=== PATIENT | female | born 1980 | race African-American/Black ===

== ENCOUNTER 2017-08-03 22:15 | Emergency (ER) | payer MEDICAID ==
[2017-08-03] MEDS ORDERED: FENTANYL CITR 100 MCG/2 ML ONE (23:00)
[2017-08-03] MEDS ORDERED: ASPIRIN 81 MG CHEWABLE TABLET ONE (23:00)
[2017-08-03] MEDS ORDERED: NITROGLYCERIN 0.4 MG/TAB SL ONE (23:11)
[2017-08-03 23:38] LABS: Absolute Lymphocytes (CBC) 2.9 K/uL (0.7-4.9); Absolute Monocytes 0.5 K/uL (0.1-1.3); Absolute Neutrophil 3.4 K/uL (1.8-8.0); Basophils % 0.4 % (0-1.3); Eosinophils % 2.8 % (0-4.4); Hematocrit 35.1 % (36.0-45.0); Lymphocytes % 41.1 % (15.3-44.8); MCH 31.1 pg (27.0-35.0); MCV 91.2 fL (80-100); Monocytes % 7.2 % (3.3-12.3); RBC Red Blood Cell Count 3.85 M/uL (3.86-4.86)
[2017-08-03 23:39] LABS: Protime INR 1.13
[2017-08-03 23:49] LABS: Bicarbonate 24 mEq/L (21-31); Glucose Level 86 mg/dL (65-120); Potassium 3.1 mEq/L (3.6-5.0); Sodium Level 136 mEq/L (135-145)
[2017-08-03 23:55] LABS: ALT/SGPT 13 IU/L (10-60); AST/SGOT 16 IU/L (10-42); Albumin 3.8 g/dL (3.2-5.5); Alkaline Phosphatase 69 IU/L (42-121); BUN Blood Urea Nitrogen 9 mg/dL (6-20); Bilirubin Direct 0.1 mg/dL (0-0.2); Bilirubin Total 0.7 mg/dL (0.3-1.2); Magnesium 1.9 mg/dL (1.8-2.5); Protein, Total 7.4 g/dL (6.0-8.3)
[2017-08-04] MEDS ORDERED: POTASSIUM CL SA 10 MEQ TAB PO ONE (00:08)
--- NOTE | 2017-08-04 00:51 | EDPHYS ---
Physician Documentation [facility] Name: Lala Lares Age: 36 yrs Sex: Female : 1980 Arrival Date: 08/03/2017 Time: 22:16 Bed 17 Private MD: out of town, doctor ED Physician Ramin Joseph HPI: 08/03 23:11 This 36 yrs old Black Female presents to ER via EMS with complaints of Chest Pain. jr8 23:11 The patient or guardian reports chest pain that is located primarily in the anterior jr8 chest wall, left. The pain does not radiate. Associated signs and symptoms: Pertinent positives: dizziness, nausea. The chest pain is described as a pressure, sharp. Duration: The patient or guardian reports a single episode, that lasted 1 hour(s). Severity of pain: At its worst the pain was moderate in the emergency department the pain has improved mildly. EMS care prior to arrival includes: nitroglycerin, x 1, with partial relief of the chest pain. The patient has not experienced similar symptoms in the past. The patient has not recently seen a physician. Patient stated that she has had chest pain in past before. Stated that this has lasted longer and was different. Normally describes pain as reflux sensation. Today was pressure feeling and sharp to mid sternal region . 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 - Social history:: Smoking status: Patient uses tobacco products, denies chronic smoking, but will smoke occasionally. - Ebola Screening: : Patient negative for fever greater than or equal to 101.5 degrees Fahrenheit, and additional compatible Ebola Virus Disease symptoms. ROS: 23:11 Eyes: Negative for injury, pain, redness, and discharge, ENT: Negative for injury, jr8 pain, and discharge, Neck: Negative for injury, pain, and swelling, Respiratory: Negative for shortness of breath, cough, wheezing, and pleuritic chest pain, Abdomen/GI: Negative for abdominal pain, nausea, vomiting, diarrhea, and constipation, Back: Negative for injury and pain, MS/Extremity: Negative for injury and deformity, Skin: Negative for injury, rash, and discoloration, Neuro: Negative for headache, weakness, numbness, tingling, and seizure. 23:11 Cardiovascular: Positive for chest pain, Negative for edema, orthopnea, palpitations, paroxysmal nocturnal dyspnea. Exam: 23:11 Head/Face: Normocephalic, atraumatic. Eyes: Pupils equal round and reactive to light, jr8 extra-ocular motions intact. Lids and lashes normal. Conjunctiva and sclera are non-icteric and not injected. Cornea within normal limits. Periorbital areas with no swelling, redness, or edema. ENT: Nares patent. No nasal discharge, no septal abnormalities noted. Tympanic membranes are normal and external auditory canals are clear. Oropharynx with no redness, swelling, or masses, exudates, or evidence of obstruction, uvula midline. Mucous membranes moist. Neck: Trachea midline, no thyromegaly or masses palpated, and no cervical lymphadenopathy. Supple, full range of motion without nuchal rigidity, or vertebral point tenderness. No Meningismus. Cardiovascular: Regular rate and rhythm with a normal S1 and S2. No gallops, murmurs, or rubs. Normal PMI, no JVD. No pulse deficits. Respiratory: Lungs have equal breath sounds bilaterally, clear to auscultation and percussion. No rales, rhonchi or wheezes noted. No increased work of breathing, no retractions or nasal flaring. Abdomen/GI: Soft, non-tender, with normal bowel sounds. No distension or tympany. No guarding or rebound. No evidence of tenderness throughout. Back: No spinal tenderness. No costovertebral tenderness. Full range of motion. Skin: Warm, dry with normal turgor. Normal color with no rashes, no lesions, and no evidence of cellulitis. MS/ Extremity: Pulses equal, no cyanosis. Neurovascular intact. Full, normal range of motion. Neuro: Awake and alert, GCS 15, oriented to person, place, time, and situation. Cranial nerves II-XII grossly intact. Motor strength 5/5 in all extremities. Sensory grossly intact. Cerebellar exam normal. Normal gait. 23:11 Chest/axilla: Inspection: normal, Palpation: tenderness, that is mild, of the anterior aspect of left upper chest, that partially reproduces the patient's complaints. Vital Signs: 22:22 BP 176 / 118; Pulse 71; Resp 18 S; Temp 98.1(O); Pulse Ox 100% on R/A; Weight 95.71 kg jd3 (R); Height 5 ft. 5 in. (165.10 cm) (R); Pain 7/10; 23:27 BP 166 / 103; Pulse 63; Resp 17 S; Pulse Ox 100% on R/A; Pain 5/10; jd3 08/04 00:47 BP 171 / 108; Pulse 60; Resp 15 S; Pulse Ox 97% on R/A; Pain 0/10; jd3 08/03 22:22 Body Mass Index 35.11 (95.71 kg, 165.10 cm) [facility] MDM: 08/03 22:31 Patient medically screened. jr8 08/04 00:48 Differential diagnosis: acute myocardial infarction, acute pericarditis, anxiety, chest jr8 wall pain, cholecystitis, Cholelithiasis costochondritis, esophagitis, gastritis, gastroesophageal reflux disease (GERD), pleurisy, pneumonia, pulmonary embolus, stable angina, thoracic aortic disection, unstable angina. HEART Score: History: Moderately Suspicious (1), ECG: Normal (0), Age: < or = 45 years (0), Risk Factors: 1 or 2 risk factors (1), [Hypertension] Troponin: < or = 1 x Normal Limit (0). Data reviewed: vital signs, nurses notes, lab test result(s), EKG, radiologic studies, plain films, and as a result, I will discharge patient. Data interpreted: Pulse oximetry: on room air is 97 %. Interpretation: normal. 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 00:50 Response to treatment: the patient's symptoms have markedly improved after treatment. 08/03 22:42 Order name: Basic Metabolic Panel; Complete Time: 00:00 08/03 22:42 Order name: BNP; Complete Time: 00:00 08/03 22:42 Order name: CBC with Diff; Complete Time: 00:00 08/03 22:42 Order name: LFT's; Complete Time: 00:00 08/03 22:42 Order name: Magnesium; Complete Time: 00:00 08/03 22:42 Order name: PT-INR; Complete Time: 00:00 08/03 22:42 Order name: Troponin (emerg Dept Use Only); Complete Time: 00:00 08/03 22:42 Order name: XRAY Chest (1 view) 08/03 22:42 Order name: EKG; Complete Time: 22:43 08/04 00:19 Order name: Troponin (emerg Dept Use Only); Complete Time: 00:48 [facility] 08/03 22:42 Order name: Cardiac monitoring; Complete Time: 22:45 08/03 22:42 Order name: EKG - Nurse/Tech; Complete Time: 22:45 08/03 22:42 Order name: IV Saline Lock; Complete Time: 22:46 08/03 22:42 Order name: Labs collected and sent; Complete Time: 23:20 08/03 22:42 Order name: O2 Per Protocol; Complete Time: 22:46 08/03 22:42 Order name: O2 Sat Monitoring; Complete Time: 22:46 08/03 22:42 Order name: Urine Dipstick-Ancillary (obtain specimen); Complete Time: 22:46 Administered Medications: 08/03 23:19 Drug: fentaNYL (PF) 50 mcg Route: IVP; Site: right wrist; 08/04 00:09 Follow up: Response: No adverse reaction; Pain is decreased 08/03 23:20 Drug: Aspirin Chewable Tablet 324 mg Route: PO; 08/04 00:09 Follow up: Response: No adverse reaction 08/03 23:20 Drug: Nitroglycerin 0.4 mg Route: Sublingual; 08/04 00:09 Follow up: Response: No adverse reaction jd3 00:09 Drug: Potassium Chloride 40 mEq Route: PO; jd3 01:00 Follow up: Response: No adverse reaction jd3 Disposition: 01:58 Co-signature as Attending Physician, Ramin Joseph MD. rn Disposition: 08/04/17 00:50 Discharged to Home. Impression: Chest pain, unspecified. - Condition is Stable. - Discharge Instructions: Nonspecific Chest Pain, Chest Wall Pain, Aspirin and Your Heart. - Medication Reconciliation Form, Thank You Letter, Antibiotic Education, Prescription Opioid Use form. - Follow up: Soy Mercer MD; When: 48 Hours; Reason: Recheck today's complaints, Continuance of care, Re-evaluation by your physician. - Problem is new. - Symptoms have improved. Signatures: Dispatcher [employer] EDMS Ramin Joseph MD MD rn Roszak, Josh, PA PA jr8 Afshin Laguerre RN RN jd3 Corrections: (The following items were deleted from the chart) 01:00 00:50 08/04/2017 00:50 Discharged to Home. Impression: Chest pain, unspecified. jd3 Condition is Stable. Forms are Medication Reconciliation Form, Thank You Letter, Antibiotic Education, Prescription Opioid Use. Follow up: Soy Mercer; When: 48 Hours; Reason: Recheck today's complaints, Continuance of care, Re-evaluation by your physician. Problem is new. Symptoms have improved. jr8
--- NOTE | 2017-08-04 00:51 | ER ---
Nurse's Notes [facility] Name: Lala Lares Age: 36 yrs Sex: Female : 1980 Arrival Date: 08/03/2017 Time: 22:16 Bed 17 Private MD: out of town, doctor Diagnosis: Chest pain, unspecified Presentation: 08/03 22:17 Presenting complaint: EMS states: "pt has been having chest pain all day as well as jd3 feeling weak. she also has been having a headache with elevated blood pressure.". Transition of care: patient was not received from another setting of care. Onset of symptoms was August 03, 2017. Risk Assessment: Do you want to hurt yourself or someone else? Patient reports no desire to harm self or others. Initial Sepsis Screen: Does the patient meet any 2 criteria? No. Patient's initial sepsis screen is negative. Does the patient have a suspected source of infection? No. Patient's initial sepsis screen is negative. Care prior to arrival: Medication(s) given: nitro IV initiated. 22 GA, in the left antecubital area, Glucose check: 83. 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 - Social history:: Smoking status: Patient uses tobacco products, denies chronic smoking, but will smoke occasionally. - Ebola Screening: : Patient negative for fever greater than or equal to 101.5 degrees Fahrenheit, and additional compatible Ebola Virus Disease symptoms. Screenin:26 Abuse screen: Denies threats or abuse. Nutritional screening: No deficits noted. jd3 Tuberculosis screening: No symptoms or risk factors identified. Fall Risk Fall in past 12 months (25 points). IV access (20 points). Ambulatory Aid- None/Bed Rest/Nurse Assist (0 pts). Gait- Normal/Bed Rest/Wheelchair (0 pts) Mental Status- Oriented to own ability (0 pts). Total Quezada Fall Scale indicates High Risk Score (45 or more points). Fall prevention measures have been instituted. Side Rails Up X 2 Placed Close to Nursing Station Frequent Obs/Assessments Occuring. Assessment: 22:24 General: Appears uncomfortable, Behavior is calm, cooperative, appropriate for age. jd3 Pain: Complains of pain in chest Pain does not radiate. Pain currently is 7 out of 10 on a pain scale. Quality of pain is described as pressure, sharp, Pain began suddenly, Is continuous. Neuro: Level of Consciousness is awake, alert, obeys commands, Oriented to person, place, time, situation. Cardiovascular: Heart tones S1 S2 present Capillary refill < 3 seconds Patient's skin is warm and dry. Rhythm is regular. Respiratory: Airway is patent Respiratory effort is even, unlabored, Respiratory pattern is regular, symmetrical, Breath sounds are clear bilaterally. GI: Abdomen is round Bowel sounds present X 4 quads. Abd is soft and non tender X 4 quads. Patient currently denies nausea, vomiting. : No signs and/or symptoms were reported regarding the genitourinary system. EENT: No signs and/or symptoms were reported regarding the EENT system. Derm: Skin is intact, Skin is dry, Skin is normal, Skin temperature is warm. Musculoskeletal: Circulation, motion, and sensation intact. Range of motion: intact in all extremities. 23:26 Reassessment: Patient appears in no apparent distress at this time. Patient and/or jd3 family updated on plan of care and expected duration. Pain level reassessed. Patient is alert, oriented x 3, equal unlabored respirations, skin warm/dry/pink. 08/04 00:48 Reassessment: Patient appears in no apparent distress at this time. Patient and/or jd3 family updated on plan of care and expected duration. Pain level reassessed. Patient is alert, oriented x 3, equal unlabored respirations, skin warm/dry/pink. pt resting in bed, eyes closed, even and unlabored respirations, no distress noted at this time, call bethea in reach, waiting for results. 00:59 Reassessment: Patient appears in no apparent distress at this time. Patient and/or jd3 family updated on plan of care and expected duration. Pain level reassessed. Patient is alert, oriented x 3, equal unlabored respirations, skin warm/dry/pink. pt reported understanding of discharge instructions, even and steady gait upon discharge. Patient states feeling better. Vital Signs: 08/03 22:22 BP 176 / 118; Pulse 71; Resp 18 S; Temp 98.1(O); Pulse Ox 100% on R/A; Weight 95.71 kg jd3 (R); Height 5 ft. 5 in. (165.10 cm) (R); Pain 7/10; 23:27 BP 166 / 103; Pulse 63; Resp 17 S; Pulse Ox 100% on R/A; Pain 5/10; jd3 08/04 00:47 BP 171 / 108; Pulse 60; Resp 15 S; Pulse Ox 97% on R/A; Pain 0/10; jd3 08/03 22:22 Body Mass Index 35.11 (95.71 kg, 165.10 cm) [facility] ED Course: 08/03 22:16 Patient arrived in ED. ds1 22:16 Afshin Laguerre, RN is Primary Nurse. jd3 22:20 Triage completed. jd3 22:24 Arm band placed on. jd3 22:27 Patient has correct armband on for positive identification. Bed in low position. Call jd3 light in reach. Side rails up X2. laboratory monitor on. Pulse ox on. NIBP on. 22:27 Patient maintains SpO2 saturation greater than 95% on room air. jd3 22:31 Jose A Comer PA is PHCP. jr8 22:31 Ramin Joseph MD is Attending Physician. jr8 22:52 XRAY Chest (1 view) In Process Unspecified. EDMS 22:52 X-ray completed. Portable x-ray completed in exam room. Patient tolerated procedure kc2 well. 08/04 00:09 None, None is Private Physician. ds1 00:13 out of town, doctor is Private Physician. ds1 00:49 Soy Mercer MD is Referral Physician. jr8 00:57 No provider procedures requiring assistance completed. IV discontinued, intact, jd3 bleeding controlled, No redness/swelling at site. Pressure dressing applied. Administered Medications: 08/03 23:19 Drug: fentaNYL (PF) 50 mcg Route: IVP; Site: right wrist; jd3 08/04 00:09 Follow up: Response: No adverse reaction; Pain is decreased jd3 08/03 23:20 Drug: Aspirin Chewable Tablet 324 mg Route: PO; jd3 08/04 00:09 Follow up: Response: No adverse reaction jd3 08/03 23:20 Drug: Nitroglycerin 0.4 mg Route: Sublingual; jd3 08/04 00:09 Follow up: Response: No adverse reaction jd3 00:09 Drug: Potassium Chloride 40 mEq Route: PO; jd3 01:00 Follow up: Response: No adverse reaction jd3 Outcome: 00:50 Discharge ordered by MD. gonzalez 00:57 Discharged to home ambulatory, to lobby to wait for ride. jd3 00:57 Condition: stable 00:57 Discharge instructions given to patient, Instructed on discharge instructions, follow up and referral plans. Demonstrated understanding of instructions, follow-up care. 01:00 Patient left the ED. jd3 Signatures: Dispatcher [employer] EDNY Sunitha Watters1 Jose A Comer PA PA 8 Francia Robertson2 Afshin Laguerre, RN RN jd3
[2017-08-04 01:04] VITALS: TEMP 98.1
[2017-08-04 01:06] VITALS: BP 171/108; O2SAT 97
--- NOTE | 2017-08-04 07:59 | RAD REPORT ---
EXAM DESCRIPTION: Angeline Single View08/03/2017 10:53 pm CLINICAL HISTORY: Chest pain COMPARISON: January 2017 FINDINGS: The lungs appear clear of acute infiltrate. The heart is normal size IMPRESSION: No acute abnormalities displayed
--- NOTE | 2017-08-04 10:36 | EKG ---
Test Date: 2017-08-03 Test Time: 22:21:40 Stamp Clerk: CITLALY MEASUREMENT RESULTS: Intervals: Rate: 66 AK: 186 QRSD: 86 QT: 426 QTc: 446 Bertram: P: 33 AK: 186 QRS: 61 T: 45 INTERPRETIVE STATEMENTS: Normal sinus rhythm Cannot rule out Anterior infarct, age undetermined Abnormal ECG Compared to ECG 06/04/2016 07:20:51 Myocardial infarct finding now present Sinus bradycardia no longer present Electronically Signed On 08-04-17 10:34:48 CDT by Jaxon Saez
== END 2017-08-04 01:00 | disposition home or self-care (01) ==
LOC: ER 22:15
DX: R07.9 Chest pain, unspecified (principal); E11.9 Type 2 diabetes mellitus without complications; I10 Essential (primary) hypertension; M32.9 Systemic lupus erythematosus, unspecified
CPT/HCPCS: 36415; 71045; 80048; 80076; 83735; 83880; 84484; 85025; 85610; 93005; 96374; 99285; J3010

== ENCOUNTER 2018-06-02 12:10 | Emergency (ER) | payer MEDICAID, OTHER ==
[2018-06-02 13:41] LABS: Urine Blood NEGATIVE (NEG); Urine Glucose NEGATIVE (NEG); Urine Protein NEGATIVE (NEG); Urine Specific Gravity 1.015 (1.005-1.030)
--- NOTE | 2018-06-02 13:42 | RAD REPORT ---
EXAM DESCRIPTION: Angeline Single View06/02/2018 1:34 pm CLINICAL HISTORY: Chest pain COMPARISON: 2017 FINDINGS: The left base is mildly hazy. Right lung appears clear. Acute infiltrate. The heart is mil dly enlarged IMPRESSION: The left base is mildly hazy probably secondary to overlying soft tissue. Infiltrate is considered less likely. If clinically indicated further evaluation with PA and lateral chest series could be obtained
--- NOTE | 2018-06-02 13:45 | RAD REPORT ---
EXAM DESCRIPTION: CT - Head Brain Wo Cont - 06/02/2018 1:31 pm CLINICAL HISTORY: Headache COMPARISON: None. TECHNIQUE: Computed axial tomography of the head was obtained. IV contrast was not requested. All CT scans are performed using dose optimization technique as appropriate and may include automated exposure control or mA/KV adjustment according to patient size. FINDINGS: An intracranial bleed is not seen . The ventricles are normal in caliber. No extra-axial fluid collection is noted. Bilateral basal ganglia calcifications. Fluid within the sinuses/ mastoids is not seen. IMPRESSION: No acute intracranial abnormality is seen. If patient's symptoms persist MRI of the bra in would be recommended.
[2018-06-02 14:26] LABS: Absolute Lymphocytes (CBC) 1.9 K/uL (0.7-4.9); Absolute Monocytes 0.5 K/uL (0.1-1.3); Absolute Neutrophil 4.8 K/uL (1.8-8.0); Eosinophils % 1.7 % (0-4.4); Hematocrit 38.2 % (36.0-45.0); Lymphocytes % 25.8 % (15.3-44.8); MPV 9.8 fL (7.6-11.3); Monocytes % 6.9 % (3.3-12.3); RBC Red Blood Cell Count 4.24 M/uL (3.86-4.86)
[2018-06-02 14:29] LABS: BUN Blood Urea Nitrogen 8 mg/dL (7-18); Bicarbonate 26 mmol/L (21-32); Glucose Level 87 mg/dL (74-106); Potassium 3.2 mmol/L (3.5-5.1); Sodium Level 139 mmol/L (136-145)
[2018-06-02 14:33] LABS: ALT/SGPT 22 U/L (12-78); AST/SGOT 18 U/L (15-37); Alkaline Phosphatase 98 U/L (45-117); Bilirubin Direct 0.1 mg/dL (0-0.2); Bilirubin Total 0.4 mg/dL (0.2-1.0); Magnesium 2.1 mg/dL (1.8-2.4); NT PRO-BNP 96 pg/mL (<125); Protein, Total 8.6 g/dL (6.4-8.2); Troponin (Emerg Dept Use Only) < 0.02 ng/mL (0.0-0.045)
--- NOTE | 2018-06-02 14:34 | RAD REPORT ---
EXAM DESCRIPTION: Angeline Hagen (2 Views)06/02/2018 2:28 pm CLINICAL HISTORY: Cough COMPARISON: June 02, 2018 FINDINGS: The lungs appear clear of acute infiltrate. The heart is mildly enlarged IMPRESSION: No acute abnormalities displayed
[2018-06-02] MEDS ORDERED: POTASSIUM 25 MEQ EFFERV TAB ONE (14:57)
[2018-06-02 15:00] LABS: Protime INR 1.14
[2018-06-02] MEDS ORDERED: METOCLOPRAMIDE 10 MG/2mL INJ ONE (15:01)
[2018-06-02] MEDS ORDERED: DIPHENHYDRAMINE 50 MG/ML VIAL ONE (15:01)
[2018-06-02] MEDS ORDERED: KETOROLAC 30 MG/ML INJ ONE (15:01)
[2018-06-02] MEDS ORDERED: cloNIDine HCl 0.1 MG TAB ONE (15:01)
--- NOTE | 2018-06-02 15:35 | EKG ---
Test Date: 2018-06-02 Test Time: 13:24:24 Air Pollution Analyst: BRAYAN MEASUREMENT RESULTS: Intervals: Rate: 75 ID: [id number] QRSD: 82 QT: 426 QTc: 475 Walton: P: 45 ID: [id number] QRS: 80 T: 73 INTERPRETIVE STATEMENTS: Normal sinus rhythm Possible Left atrial enlargement Cannot rule out Anterior infarct, age undetermined Abnormal ECG Compared to ECG 08/03/2017 22:21:40 No significant changes Electronically Signed On 06-02-18 13:57:36 CDT by Soy Mercer
--- NOTE | 2018-06-02 15:50 | EDPHYS ---
Physician Documentation [facility] Name: Lala Lares Age: 37 yrs Sex: Female : 1980 Arrival Date: 06/02/2018 Time: 12:15 Bed 23 Private MD: None, None ED Physician Ramin Joseph HPI: 06/02 14:00 This 37 yrs old Black Female presents to ER via Ambulatory with complaints of High pm1 Blood Pressure. 14:00 The patient has elevated blood pressure and discovered this at home, with a home pm1 device. Onset: The symptoms/episode began/occurred 2 day(s) ago. Modifying factors: The symptoms are aggravated by discontinuation of meds, ROSALES-inhibitor, calcium channel syed, hydrochlorothiazide. Associated signs and symptoms: Pertinent positives: headache. Severity of symptoms: in the emergency department the blood pressure is unchanged. The patient has not recently seen a physician, the patient's primary care provider is Dr. Roy in March 2017 who believed that the patient was taking her BP medications. Patient has not been taking her blood pressure medications for the past 6 months. She has been using diet and exercise. For the past two days her blood pressure has been elevated 140s/100s with a frontal headache. Has also had a cough, allergies, bilateral runny eyes causing blurred vision, and a cough. 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 tw2 Historical: - Allergies: 12:31 No Known Allergies; sg - Home Meds: 13:07 gabapentin 100 mg Oral cap nightly [Active]; tw2 - PMHx: 12:31 Anemia; Arthritis; Diabetes - NIDDM; Fibromyalgia; Headaches; Hypertension; Lupus; sg - PSHx: 12:31 ; sg - Immunization history:: Adult Immunizations up to date. - Ebola Screening: : Patient negative for fever greater than or equal to 101.5 degrees Fahrenheit, and additional compatible Ebola Virus Disease symptoms Patient denies exposure to infectious person Patient denies travel to an Ebola-affected area in the 21 days before illness onset No symptoms or risks identified at this time. - Social history:: Smoking status: Patient uses tobacco products, smokes one pack cigarettes per day. ROS: 14:00 Constitutional: Negative for fever, chills, and weight loss, ENT: Negative for injury, pm1 pain, and discharge. 14:00 Neck: Negative for injury, pain, and swelling, Cardiovascular: Negative for chest pain, palpitations, and edema. 14:00 Abdomen/GI: Negative for abdominal pain, nausea, vomiting, diarrhea, and constipation, Back: Negative for injury and pain, : Negative for injury, bleeding, discharge, and swelling, MS/Extremity: Negative for injury and deformity, Skin: Negative for injury, rash, and discoloration. 14:00 Eyes: Positive for blurry vision, tearing, swelling to eyelids bilaterally, Negative for discharge. 14:00 Respiratory: Positive for cough, Negative for shortness of breath, sputum production, wheezing. 14:00 Neuro: Positive for headache, Negative for dizziness, numbness, tingling, weakness. Exam: 14:00 Constitutional: This is a well developed, well nourished patient who is awake, alert, pm1 and in no acute distress. Head/Face: Normocephalic, atraumatic. ENT: Nares patent. No nasal discharge, no septal abnormalities noted. Tympanic membranes are normal and external auditory canals are clear. Oropharynx with no redness, swelling, or masses, exudates, or evidence of obstruction, uvula midline. Mucous membranes moist. 14:00 Neck: Trachea midline, no thyromegaly or masses palpated, and no cervical lymphadenopathy. Supple, full range of motion without nuchal rigidity, or vertebral point tenderness. No Meningismus. Chest/axilla: Normal chest wall appearance and motion. Nontender with no deformity. No lesions are appreciated. Cardiovascular: Regular rate and rhythm with a normal S1 and S2. No gallops, murmurs, or rubs. Normal PMI, no JVD. No pulse deficits. Respiratory: Lungs have equal breath sounds bilaterally, clear to auscultation and percussion. No rales, rhonchi or wheezes noted. No increased work of breathing, no retractions or nasal flaring. Abdomen/GI: Soft, non-tender, with normal bowel sounds. No distension or tympany. No guarding or rebound. No evidence of tenderness throughout. Back: No spinal tenderness. No costovertebral tenderness. Full range of motion. Skin: Warm, dry with normal turgor. Normal color with no rashes, no lesions, and no evidence of cellulitis. MS/ Extremity: Pulses equal, no cyanosis. Neurovascular intact. Full, normal range of motion. 14:00 Eyes: Periorbital structures: appear normal, Extraocular movements: intact throughout, Conjunctiva: injected, bilaterally, Lids and lashes: mild swelling bilaterally. 14:00 Neuro: Orientation: is normal, Mentation: is normal, Cerebellar function: normal finger to nose testing, Motor: is normal, moves all fours, Sensation: is normal, no obvious gross deficits, Gait: is steady, at a normal pace, without difficulty. Vital Signs: 12:29 BP 175 / 106; Pulse 88; Resp 17; Temp 98.2; Pulse Ox 100% on R/A; Weight 100.24 kg; sg Height 5 ft. 5 in. (165.10 cm); Pain 6/10; 12:48 BP 183 / 114 LA Sitting (auto/lg); Pulse 86; Resp 18; Temp 100.7(O); Pulse Ox 100% on jp3 R/A; Pain 8/10; 13:07 BP 169 / 106; Pulse 86; Resp 17; Pulse Ox 100% on R/A; tw2 13:55 Temp 98.6(O); jp3 14:30 BP 168 / 139; Pulse 78; Resp 17; Pulse Ox 100% on R/A; tw2 14:45 BP 164 / 110 LA Sitting (auto/lg); Pulse 70; Resp 18; Temp 98.4; Pulse Ox 100% ; Pain jp3 7/10; 15:33 BP 154 / 104; Pulse 77; Resp 17; Pulse Ox 99% on R/A; tw2 12:29 Body Mass Index 36.78 (100.24 kg, 165.10 cm) sg 12:48 Pt reported " i feel generall weak and very sluggish" jp3 MDM: 13:10 Patient medically screened. pm1 13:10 Data reviewed: vital signs. Data interpreted: Pulse oximetry: on room air is 100 %. pm1 Interpretation: normal. 15:48 Counseling: I had a detailed discussion with the patient and/or guardian regarding: the pm1 historical points, exam findings, and any diagnostic results supporting the discharge/admit diagnosis, lab results, radiology results, the need for outpatient follow up, to return to the emergency department if symptoms worsen or persist or if there are any questions or concerns that arise at home. 06/02 13:08 Order name: Urine Dipstick--Ancillary (enter results); Complete Time: 13:54 eb 06/02 13:08 Order name: Urine --Ancillary (enter results); Complete Time: 13:54 eb 06/02 13:11 Order name: Basic Metabolic Panel; Complete Time: 14:39 pm1 06/02 13:11 Order name: CBC with Diff; Complete Time: 14:39 pm06/02 13:11 Order name: LFT's; Complete Time: 14:39 pm06/02 13:11 Order name: Magnesium; Complete Time: 14:39 pm06/02 13:11 Order name: CT Head Brain wo Cont; Complete Time: 13:54 pm06/02 13:11 Order name: NT PRO-BNP; Complete Time: 14:39 pm06/02 13:11 Order name: PT-INR; Complete Time: 15:12 pm06/02 13:11 Order name: Troponin (emerg Dept Use Only); Complete Time: 14:39 pm06/02 13:11 Order name: XRAY Chest (1 view); Complete Time: 13:54 pm06/02 13:11 Order name: Flu; Complete Time: 14:23 pm06/02 13:11 Order name: [place] Screen Profile; Complete Time: 15:12 pm06/02 13:58 Order name: Chest Pa And Lat (2 Views) XRAY; Complete Time: 14:39 pm06/02 13:11 Order name: EKG; Complete Time: 13:12 pm06/02 13:11 Order name: Cardiac monitoring; Complete Time: 13:27 pm06/02 13:11 Order name: EKG - Nurse/Tech; Complete Time: 13:27 pm06/02 13:11 Order name: IV Saline Lock; Complete Time: 15:11 pm06/02 13:11 Order name: Labs collected and sent; Complete Time: 15:11 pm06/02 13:11 Order name: O2 Per Protocol; Complete Time: 13:27 pm06/02 13:11 Order name: O2 Sat Monitoring; Complete Time: 13:27 pm1 Administered Medications: 14:50 Drug: Reglan 10 mg Route: IVP; Site: right antecubital; tw2 15:11 Follow up: Response: No adverse reaction em 15:12 Follow up: Response: No adverse reaction tw2 14:53 Drug: TORadol 30 mg Route: IVP; Site: right antecubital; tw2 15:11 Follow up: Response: No adverse reaction; Pain is decreased em 15:12 Follow up: Response: No adverse reaction; Pain is decreased tw2 14:57 Drug: Benadryl 12.5 mg Route: IVP; Site: right antecubital; tw2 15:11 Follow up: Response: No adverse reaction em 15:12 Follow up: Response: No adverse reaction tw2 14:58 Drug: Potassium Effervescent Tablet 50 mEq Route: PO; tw2 15:01 Follow up: Response: No adverse reaction tw2 15:13 Follow up: Response: No adverse reaction tw2 14:59 Drug: cloNIDine 0.1 mg Route: PO; tw2 16:00 Follow up: Response: No adverse reaction tw2 Disposition: 17:30 Co-signature as Attending Physician, Ramin Joseph MD. rn Disposition: 06/02/18 15:49 Discharged to Home. Impression: Headache, Essential (primary) hypertension, Acute upper respiratory infection, unspecified. - Condition is Stable. - Discharge Instructions: General Headache Without Cause, Hypertension, Upper Respiratory Infection, Adult, How to Take Your Blood Pressure, [id number], DASH Eating Plan, Managing Your Hypertension. - Prescriptions for losartan- hydrochlorothiazide 100-25 mg Oral tablet - take 1 tablet by ORAL route once daily; 30 tablet. Norvasc 10 mg Oral Tablet - take 1 tablet by ORAL route once daily; 30 tablet. - Medication Reconciliation Form, Thank You Letter, Antibiotic Education, Prescription Opioid Use, Work release form, Family Work Release form. - Follow up: Emergency Department; When: As needed; Reason: Worsening of condition. Follow up: Private Physician; When: 2 - 3 days; Reason: Recheck today's complaints, Continuance of care, Re-evaluation by your physician. - Problem is new. - Symptoms have improved. Signatures: Dispatcher [employer] Romulo Sol RN Ramin Barahona MD MD rn Marinas, Patrick, GODWIN GALLERY MANAGER pm1 Angelina Thompson RN RN tw2 Rambo Tran OVEN HEATER em Corrections: (The following items were deleted from the chart) 15:59 15:49 06/02/2018 15:49 Discharged to Home. Impression: Headache; Essential (primary) tw2 hypertension; Acute upper respiratory infection, unspecified. Condition is Stable. Forms are Work release form, Family Work Release, Medication Reconciliation Form, Thank You Letter, Antibiotic Education, Prescription Opioid Use. Follow up: Emergency Department; When: As needed; Reason: Worsening of condition. Follow up: Private Physician; When: 2 - 3 days; Reason: Recheck today's complaints, Continuance of care, Re-evaluation by your physician. Problem is new. Symptoms have improved. pm1
--- NOTE | 2018-06-02 15:50 | ER ---
Nurse's Notes [facility] Name: Lala Lares Age: 37 yrs Sex: Female : 1980 Arrival Date: 06/02/2018 Time: 12:15 Bed 23 Private MD: None, None Diagnosis: Headache;Essential (primary) hypertension;Acute upper respiratory infection, unspecified Presentation: 06/02 12:32 Presenting complaint: Patient states: Have had high blood pressure for the past few sg days, reports 140's/100's at home, reports having been on Losartan but is not currently taking medication for BP at this time, reports headache and blurred vision as well that started about two days ago. Transition of care: patient was not received from another setting of care. Onset of symptoms was June 02, 2018. Risk Assessment: Do you want to hurt yourself or someone else? Patient reports no desire to harm self or others. Initial Sepsis Screen: Does the patient meet any 2 criteria? No. Patient's initial sepsis screen is negative. Does the patient have a suspected source of infection? No. Patient's initial sepsis screen is negative. Care prior to arrival: None. 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 tw2 Historical: - Allergies: 12:31 No Known Allergies; sg - Home Meds: 13:07 gabapentin 100 mg Oral cap nightly [Active]; tw2 - PMHx: 12:31 Anemia; Arthritis; Diabetes - NIDDM; Fibromyalgia; Headaches; Hypertension; Lupus; sg - PSHx: 12:31 ; sg - Immunization history:: Adult Immunizations up to date. - Ebola Screening: : Patient negative for fever greater than or equal to 101.5 degrees Fahrenheit, and additional compatible Ebola Virus Disease symptoms Patient denies exposure to infectious person Patient denies travel to an Ebola-affected area in the 21 days before illness onset No symptoms or risks identified at this time. - Social history:: Smoking status: Patient uses tobacco products, smokes one pack cigarettes per day. Screenin:59 Abuse screen: Denies threats or abuse. Nutritional screening: No deficits noted. tw2 Tuberculosis screening: No symptoms or risk factors identified. Fall Risk None identified. Assessment: 13:03 General: Appears in no apparent distress. Behavior is calm, cooperative, appropriate tw2 for age. Pain: Denies pain. Neuro: Level of Consciousness is awake, alert, obeys commands, Oriented to person, place, time, situation, Reports headache. Cardiovascular: Reports shortness of breath, Heart tones S1 S2 Capillary refill < 3 seconds Patient's skin is warm and dry. Respiratory: Reports cough that is Airway is patent Respiratory effort is even, unlabored, Respiratory pattern is regular, symmetrical, Breath sounds are clear bilaterally. GI: No signs and/or symptoms were reported involving the gastrointestinal system. Abdomen is round non-distended, Bowel sounds present X 4 quads. : No signs and/or symptoms were reported regarding the genitourinary system. EENT: No signs and/or symptoms were reported regarding the EENT system. Derm: No signs and/or symptoms reported regarding the dermatologic system. Musculoskeletal: Range of motion: intact in all extremities. 13:07 Reassessment: provider at bedside at this time. tw2 14:30 Reassessment: Patient appears in no apparent distress at this time. No changes from tw2 previously documented assessment. Patient and/or family updated on plan of care and expected duration. Pain level reassessed. Patient is alert, oriented x 3, equal unlabored respirations, skin warm/dry/pink. 15:32 Reassessment: Patient appears in no apparent distress at this time. No changes from tw2 previously documented assessment. Patient and/or family updated on plan of care and expected duration. Pain level reassessed. Patient is alert, oriented x 3, equal unlabored respirations, skin warm/dry/pink. 15:59 Reassessment: Patient appears in no apparent distress at this time. Patient and/or tw2 family updated on plan of care and expected duration. Pain level reassessed. Patient is alert, oriented x 3, equal unlabored respirations, skin warm/dry/pink. Patient states feeling better. Vital Signs: 12:29 BP 175 / 106; Pulse 88; Resp 17; Temp 98.2; Pulse Ox 100% on R/A; Weight 100.24 kg; sg Height 5 ft. 5 in. (165.10 cm); Pain 6/10; 12:48 BP 183 / 114 LA Sitting (auto/lg); Pulse 86; Resp 18; Temp 100.7(O); Pulse Ox 100% on jp3 R/A; Pain 8/10; 13:07 BP 169 / 106; Pulse 86; Resp 17; Pulse Ox 100% on R/A; tw2 13:55 Temp 98.6(O); jp3 14:30 BP 168 / 139; Pulse 78; Resp 17; Pulse Ox 100% on R/A; tw2 14:45 BP 164 / 110 LA Sitting (auto/lg); Pulse 70; Resp 18; Temp 98.4; Pulse Ox 100% ; Pain jp3 7/10; 15:33 BP 154 / 104; Pulse 77; Resp 17; Pulse Ox 99% on R/A; tw2 12:29 Body Mass Index 36.78 (100.24 kg, 165.10 cm) sg 12:48 Pt reported " i feel generall weak and very sluggish" jp3 ED Course: 12:15 Patient arrived in ED. mr 12:16 None, None is Private Physician. mr 12:29 Arm band placed on. sg 12:33 Triage completed. sg 12:43 Karl Rhodes NP is PHCP. pm1 12:43 Ramin Joseph MD is Attending Physician. pm1 12:53 Bed in low position. Call light in reach. Side rails up X 1. Side rails up X2. Pillow jp3 given. Pulse ox on. NIBP on. 12:58 Angelina Thompson, RN is Primary Nurse. tw2 13:17 Urine Dipstick--Ancillary (enter results) Sent. jp3 13:17 Urine --Ancillary (enter results) Sent. jp3 13:30 X-ray completed. Portable x-ray completed in exam room. Patient tolerated procedure jb2 well. 13:30 CT completed. Patient tolerated procedure well. Patient moved to CT via wheelchair. sj Patient moved to MRI. 13:31 CT Head Brain wo Cont In Process Unspecified. EDMS 13:32 XRAY Chest (1 view) In Process Unspecified. EDMS 13:45 Missed attempt(s): 22 gauge in right antecubital area. 24 gauge in right hand. Bleeding jp3 controlled, band aid applied, catheter tip intact. 13:50 Flu and/or RSV swab sent to lab. jp3 13:51 Flu Sent. jp3 13:57 EKG done, by farm equipment technician. reviewed by Karl Rhodes NP. sm3 14:09 Missed attempt(s): 22 gauge in right antecubital area. Bleeding controlled, band aid tw2 applied, catheter tip intact. Missed attempt(s): 22 gauge in left hand. blood collected for lavender, green, and red tube, charge nurse Alexandria notified of need for blue top and iv at this time.. 14:23 X-ray completed. Patient tolerated procedure well. Patient moved to radiology via sw wheelchair. Patient moved back from radiology. 14:26 Chest Pa And Lat (2 Views) XRAY In Process Unspecified. EDMS 14:36 Initial lab(s) drawn, by me, sent to lab. Inserted saline lock: 22 gauge in right ms antecubital area, using aseptic technique. Blood collected. 15:58 No provider procedures requiring assistance completed. IV discontinued, intact, tw2 bleeding controlled, No redness/swelling at site. Pressure dressing applied. Administered Medications: 14:50 Drug: Reglan 10 mg Route: IVP; Site: right antecubital; tw2 15:11 Follow up: Response: No adverse reaction em 15:12 Follow up: Response: No adverse reaction tw2 14:53 Drug: TORadol 30 mg Route: IVP; Site: right antecubital; tw2 15:11 Follow up: Response: No adverse reaction; Pain is decreased em 15:12 Follow up: Response: No adverse reaction; Pain is decreased tw2 14:57 Drug: Benadryl 12.5 mg Route: IVP; Site: right antecubital; tw2 15:11 Follow up: Response: No adverse reaction em 15:12 Follow up: Response: No adverse reaction tw2 14:58 Drug: Potassium Effervescent Tablet 50 mEq Route: PO; tw2 15:01 Follow up: Response: No adverse reaction tw2 15:13 Follow up: Response: No adverse reaction tw2 14:59 Drug: cloNIDine 0.1 mg Route: PO; tw2 16:00 Follow up: Response: No adverse reaction tw2 Outcome: 15:49 Discharge ordered by MD. pm1 15:58 Discharged to home ambulatory, with family. tw2 15:58 Condition: stable 15:58 Discharge instructions given to patient, family, Instructed on discharge instructions, follow up and referral plans. medication usage, Demonstrated understanding of instructions, follow-up care, medications, Prescriptions given X 2. 15:59 Patient left the ED. tw2 Signatures: Dispatcher [employer] EDRomulo Sánchez, MANOJ RN marah Rice, Emerald mr Lashonda, Derick jb2 Melinda Ayala Edgar, RESISTOR TESTING MACHINE OPERATOR RESISTOR TESTING MACHINE OPERATOR ingrid Raza, [place] ms Luis Manuel, Karl Henry, AIR INTELLIGENCE OFFICER AIR INTELLIGENCE OFFICER pm1 Angelina Thompson RN RN tw2 Trupti Campos sm3 Gaurav Cali jp3
[2018-06-02 17:44] VITALS: TEMP 98.4
[2018-06-02 17:46] VITALS: BP 154/104; O2SAT 99
== END 2018-06-02 15:59 | disposition home or self-care (01) ==
LOC: ER 12:10
DX: I10 Essential (primary) hypertension (principal); J06.9 Acute upper respiratory infection, unspecified; F17.210 Nicotine dependence, cigarettes, uncomplicated; E11.9 Type 2 diabetes mellitus without complications
CPT/HCPCS: 36415; 70450; 71045; 71046; 80048; 80076; 81003; 81025; 83735; 83880; 84484; 85025; 85610; 86308; 87804; 93005; 96374; 96375; 99285; J2765

== ENCOUNTER 2018-10-19 20:31 | Emergency (ER) | payer OTHER, SELFPAY ==
[2018-10-19 21:22] LABS: Basophils % 1.5 % (0-1.3); Lymphocytes % 33.7 % (15.3-44.8); MPV 9.1 fL (7.6-11.3); RBC Red Blood Cell Count 3.96 M/uL (3.86-4.86)
[2018-10-19 21:25] LABS: Protime INR 0.98
[2018-10-19 21:42] LABS: ALT/SGPT 27 U/L (12-78); AST/SGOT 22 U/L (15-37); Albumin 3.2 g/dL (3.4-5.0); Alkaline Phosphatase 79 U/L (45-117); BUN Blood Urea Nitrogen 11 mg/dL (7-18); Bicarbonate 26 mmol/L (21-32); Bilirubin Direct 0.1 mg/dL (0-0.2); Bilirubin Total 0.2 mg/dL (0.2-1.0); Glucose Level 129 mg/dL (74-106); Magnesium 2.1 mg/dL (1.8-2.4); NT PRO-BNP 53 pg/mL (<125); Potassium 3.3 mmol/L (3.5-5.1); Protein, Total 7.2 g/dL (6.4-8.2); Sodium Level 142 mmol/L (136-145); Troponin (Emerg Dept Use Only) < 0.02 ng/mL (0.0-0.045)
[2018-10-19] MEDS ORDERED: KETOROLAC 30 MG/ML INJ ONE (22:40)
--- NOTE | 2018-10-20 01:42 | ER ---
Nurse's Notes [facility] Name: Lala Lares Age: 37 yrs Sex: Female : 1980 Arrival Date: 10/19/2018 Time: 20:35 Bed 8 Private MD: Diagnosis: Costochondritis Presentation: 10/19 20:39 Presenting complaint: Patient states: I have been having chest pain, SOB, and sharp la1 facial pains for the last few days. Transition of care: patient was not received from another setting of care. Onset of symptoms was October 19, 2018. Risk Assessment: Do you want to hurt yourself or someone else? Patient reports no desire to harm self or others. Initial Sepsis Screen: Does the patient meet any 2 criteria? No. Patient's initial sepsis screen is negative. Does the patient have a suspected source of infection? No. Patient's initial sepsis screen is negative. Care prior to arrival: None. 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 - Social history:: Smoking status: Patient uses tobacco products, denies chronic smoking, but will smoke occasionally. - Ebola Screening: : No symptoms or risks identified at this time. Screenin:52 Abuse screen: Denies threats or abuse. Denies injuries from another. Nutritional lp1 screening: No deficits noted. Tuberculosis screening: No symptoms or risk factors identified. Fall Risk None identified. Assessment: 20:51 General: Appears uncomfortable, Behavior is appropriate for age. Pain: Complains of lp1 pain in chest Pain radiates to back Pain currently is 8 out of 10 on a pain scale. Quality of pain is described as sharp, stabbing, Pain began gradually, Aggravated by increased activity, repositioning, Noted to be grimacing, moaning. Neuro: Level of Consciousness is awake, alert, obeys commands, Oriented to person, place, time, situation. Cardiovascular: Patient's skin is warm and dry. Respiratory: Reports pain with movement pain with respiration Respiratory effort is even, unlabored, Respiratory pattern is regular, Breath sounds are clear bilaterally. Onset: The symptoms/episode began/occurred gradually, the patient has moderate shortness of breath. GI: No signs and/or symptoms were reported involving the gastrointestinal system. : No signs and/or symptoms were reported regarding the genitourinary system. EENT: No signs and/or symptoms were reported regarding the EENT system. Derm: Skin is intact, is healthy with good turgor, Skin is dry, Skin is normal. Musculoskeletal: Circulation, motion, and sensation intact. 22:00 Reassessment: Patient and/or family updated on plan of care and expected duration. Pain lp1 level reassessed. Patient states continued pain on respiration to chest. 22:45 Reassessment: Patient returned from CT;. lp1 22:45 Reassessment: Patient appears in no apparent distress at this time. Neuro: Level of lp1 Consciousness is awake, alert, obeys commands. Respiratory: Respiratory effort is even, unlabored. Derm: Skin is intact, Skin is dry, Skin is normal. 10/20 00:30 Reassessment: Patient and/or family updated on plan of care and expected duration. Pain lp1 level reassessed. Patient states continued pain to chest on movement and respiration; Provider notified. 01:30 Reassessment: Patient appears in no apparent distress at this time. Patient and/or lp1 family updated on plan of care and expected duration. Pain level reassessed. Patient resting, eyes closed, respirations unlabored. Vital Signs: 10/19 20:46 BP 180 / 106; Pulse 65; Resp 14; Temp 98.4(O); Pulse Ox 97% on R/A; Weight 108.86 kg; lp1 Height 5 ft. 5 in. (165.10 cm); Pain 8/10; 21:02 BP 155 / 92; Pulse 64; Resp 16; Pulse Ox 97% on R/A; lp1 21:30 BP 138 / 87; Pulse 69; Resp 13; Pulse Ox 97% on R/A; lp1 22:13 BP 158 / 97; Pulse 71; Resp 20; Pulse Ox 96% on R/A; lp1 23:30 BP 143 / 95; Pulse 77; Resp 18; Pulse Ox 97% on R/A; lp1 10/20 01:00 BP 158 / 87; Pulse 61; Resp 17; Pulse Ox 96% on R/A; lp1 10/19 20:46 Body Mass Index 39.94 (108.86 kg, 165.10 cm) lp1 ED Course: 10/19 20:35 Patient arrived in ED. ag3 20:40 Triage completed. la1 20:40 Arm band placed on left wrist. la1 20:46 Jayla Montoya, RN is Primary Nurse. lp1 20:52 Patient has correct armband on for positive identification. Placed in gown. Bed in low lp1 position. Call light in reach. cutch cleaner on. Pulse ox on. NIBP on. 20:52 Patient maintains SpO2 saturation greater than 95% on room air. lp1 20:58 John Olmedo MD is Attending Physician. tw4 21:15 Initial lab(s) drawn, by me, sent to lab. Missed attempt(s): 22 gauge in right hand. lp1 21:32 XRAY Chest (1 view) In Process Unspecified. EDMS 22:14 No provider procedures requiring assistance completed. lp1 22:17 Notified ED physician of a critical lab result(s). D-Dimer 1167. lp1 22:22 Radiology exam delayed due to IV insertion attempt and/or patient not having vm2 appropriate IV at this time. 22:30 Inserted saline lock: 22 gauge in left antecubital area, using aseptic technique. jd3 22:57 CT Chest For PE Angio In Process Unspecified. EDMS 10/20 02:02 IV discontinued, No redness/swelling at site. Pressure dressing applied. lp1 Administered Medications: 10/19 22:50 Drug: TORadol 30 mg Route: IVP; Site: left antecubital; lp1 10/20 00:20 Follow up: Response: Pain is unchanged, physician notified lp1 01:50 Drug: Ibuprofen 800 mg Route: PO; lp1 02:03 Follow up: Response: Medication administered at discharge. lp1 Outcome: 01:40 Discharge ordered by . tw4 01:50 Discharged to home ambulatory, with friend. lp1 01:50 Condition: good 01:50 Discharge instructions given to patient, Instructed on discharge instructions, follow up and referral plans. medication usage, Demonstrated understanding of instructions, follow-up care, medications, Prescriptions given X 1. 02:05 Patient left the ED. lp1 Signatures: Dispatcher [employer] EDMS Jayla Montoya RN RN lp1 Gabriel Vu RN RN la1 Jessica Trujillo 2 Afshin Laguerre RN RN jd3 John Olmedo MD MD tw4 Adwoa Mobley 3
--- NOTE | 2018-10-20 01:43 | EDPHYS ---
Physician Documentation [facility] Name: Lala Lares Age: 37 yrs Sex: Female : 1980 Arrival Date: 10/19/2018 Time: 20:35 Bed 8 Private MD: ED Physician John Olmedo HPI: 10/20 00:01 This 37 yrs old Black Female presents to ER via Ambulatory with complaints of Chest tw4 Pain. 00:01 The patient or guardian reports chest pain that is located primarily in the anterior tw4 chest wall, left. The pain does not radiate. Associated signs and symptoms: The patient has no apparent associated signs or symptoms. The chest pain is described as sharp. Duration: The patient or guardian reports a single episode, that is still ongoing. Modifying factors: The symptoms are alleviated by remaining still, the symptoms are aggravated by breathing, cough, deep breath, movement, palpation of area. The patient has not experienced similar symptoms in the past. 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 - Social history:: Smoking status: Patient uses tobacco products, denies chronic smoking, but will smoke occasionally. - Ebola Screening: : No symptoms or risks identified at this time. ROS: 10/20 00:01 Constitutional: Negative for fever, chills, and weight loss, Respiratory: Negative for tw4 shortness of breath, cough, wheezing, and pleuritic chest pain, Abdomen/GI: Negative for abdominal pain, nausea, vomiting, diarrhea, and constipation, Back: Negative for injury and pain, MS/Extremity: Negative for injury and deformity, Skin: Negative for injury, rash, and discoloration, Neuro: Negative for headache, weakness, numbness, tingling, and seizure. Cardiovascular: Positive for chest pain, Negative for edema, orthopnea, palpitations, paroxysmal nocturnal dyspnea. Exam: 00:01 Constitutional: This is a well developed, well nourished patient who is awake, alert, tw4 and in no acute distress. Head/Face: Normocephalic, atraumatic. Cardiovascular: Regular rate and rhythm with a normal S1 and S2. No gallops, murmurs, or rubs. Normal PMI, no JVD. No pulse deficits. Respiratory: Lungs have equal breath sounds bilaterally, clear to auscultation and percussion. No rales, rhonchi or wheezes noted. No increased work of breathing, no retractions or nasal flaring. Abdomen/GI: Soft, non-tender, with normal bowel sounds. No distension or tympany. No guarding or rebound. No evidence of tenderness throughout. MS/ Extremity: Pulses equal, no cyanosis. Neurovascular intact. Full, normal range of motion. Neuro: Awake and alert, GCS 15, oriented to person, place, time, and situation. Cranial nerves II-XII grossly intact. Motor strength 5/5 in all extremities. Sensory grossly intact. Cerebellar exam normal. Normal gait. 00:01 Back: No spinal tenderness. No costovertebral tenderness. Full range of motion. 00:01 Chest/axilla: Inspection: normal, Palpation: tenderness, that is moderate, of the anterior aspect of left upper chest and left breast, that totally reproduces the patient's complaints. Vital Signs: 10/19 20:46 BP 180 / 106; Pulse 65; Resp 14; Temp 98.4(O); Pulse Ox 97% on R/A; Weight 108.86 kg; lp1 Height 5 ft. 5 in. (165.10 cm); Pain 8/10; 21:02 BP 155 / 92; Pulse 64; Resp 16; Pulse Ox 97% on R/A; lp1 21:30 BP 138 / 87; Pulse 69; Resp 13; Pulse Ox 97% on R/A; lp1 22:13 BP 158 / 97; Pulse 71; Resp 20; Pulse Ox 96% on R/A; lp1 23:30 BP 143 / 95; Pulse 77; Resp 18; Pulse Ox 97% on R/A; lp1 10/20 01:00 BP 158 / 87; Pulse 61; Resp 17; Pulse Ox 96% on R/A; lp1 10/19 20:46 Body Mass Index 39.94 (108.86 kg, 165.10 cm) lp1 MDM: 10/19 20:58 Patient medically screened. 10/20 06:14 Differential diagnosis: chest wall pain, peptic ulcer disease, pericarditis, pulmonary tw4 embolus, thoracic aortic disection. Data reviewed: vital signs, nurses notes. Counseling: I had a detailed discussion with the patient and/or guardian regarding: the historical points, exam findings, and any diagnostic results supporting the discharge/admit diagnosis, lab results, radiology results. Medication response: Toradol partially relieved the patient's pain. Response to treatment: the patient's symptoms have mildly improved after treatment. Special discussion: Based on the patient's history, exam, and Dx evaluation, there is no indication for emergent intervention or inpatient Tx. It is understood by the patient/guardian that if the Sx's persist or worsen they need to return immediately for re-evaluation. I discussed with the patient/guardian in detail that at this point there is no indication for admission to the hospital. It is understood, however, that if the symptoms persist or worsen the patient needs to return immediately for re-evaluation. 10/19 20:59 Order name: Basic Metabolic Panel; Complete Time: 23:58 10/19 23:58 Interpretation: Normal except: K 3.3; GFR 77; GLUC 129; CL 108; CA 8.1. 10/19 20:59 Order name: CBC with Diff; Complete Time: 23:58 10/19 23:59 Interpretation: Normal except: RDW 16.1. 10/19 20:59 Order name: LFT's; Complete Time: 23:58 10/19 23:59 Interpretation: Normal except: ALB 3.2; GLOB 4.0; A/G 0.8. 10/19 20:59 Order name: Magnesium; Complete Time: 23:58 10/19 23:59 Interpretation: Within normal limits: MG 2.1. 10/19 20:59 Order name: NT PRO-BNP; Complete Time: 23:58 10/20 00:00 Interpretation: Within normal limits: NT PRO-BNP 53. 10/19 20:59 Order name: PT-INR; Complete Time: 23:58 10/20 00:00 Interpretation: Within normal limits: PT 11.6. 10/19 20:39 Order name: EKG; Complete Time: 20:39 la10/19 20:59 Order name: Troponin (emerg Dept Use Only); Complete Time: 23:58 10/20 00:00 Interpretation: Within normal limits: TROPED < 0.02. 10/19 20:59 Order name: XRAY Chest (1 view) 10/19 21:51 Order name: D-Dimer; Complete Time: 23:58 10/19 23:59 Interpretation: Abnormal: D-DIMER 1167. 10/19 22:18 Order name: CT Chest For PE Angio 10/20 00:07 Order name: Troponin (emerg Dept Use Only); Complete Time: 01:38 10/19 20:39 Order name: EKG - Nurse/Tech; Complete Time: 20:39 wy10/19 20:59 Order name: Cardiac monitoring; Complete Time: 21:01 10/19 20:59 Order name: EKG - Nurse/Tech; Complete Time: 21:01 10/19 20:59 Order name: IV Saline Lock; Complete Time: 22:39 10/19 20:59 Order name: Labs collected and sent; Complete Time: 22:05 10/19 20:59 Order name: O2 Per Protocol; Complete Time: 21:01 10/19 20:59 Order name: O2 Sat Monitoring; Complete Time: 21:02 4 EC:01 Rate is 70 beats/min. Rhythm is regular. QRS Edwards is Normal. SD interval is normal. QRS tw4 interval is normal. QT interval is normal. No Q waves. T waves are Inverted in leads II, III, aVF, V6. No ST changes noted. Clinical impression: NSR w/ Non-specific ST/T Changes. Interpreted by me. Reviewed by me. Administered Medications: 10/19 22:50 Drug: TORadol 30 mg Route: IVP; Site: left antecubital; lp1 10/20 00:20 Follow up: Response: Pain is unchanged, physician notified lp1 01:50 Drug: Ibuprofen 800 mg Route: PO; lp1 02:03 Follow up: Response: Medication administered at discharge. lp1 Disposition: 10/20/18 01:40 Discharged to Home. Impression: Costochondritis. - Condition is Stable. - Discharge Instructions: Costochondritis. - Prescriptions for Tramadol 50 mg Oral Tablet - take 1 tablet by ORAL route every 8 hours as needed; 12 tablet. - Work release form, Medication Reconciliation Form, Thank You Letter, Antibiotic Education, Prescription Opioid Use form. - Follow up: Private Physician; When: Upon discharge from the Emergency Department; Reason: If symptoms return, Recheck today's complaints, Continuance of care. - Problem is new. - Symptoms have improved. Signatures: Dispatcher [employer] EDGA Jayla Montoya RN RN lp1 Gabriel Vu RN RN la1 John Olmedo MD MD tw4 Corrections: (The following items were deleted from the chart) 02:05 01:40 10/20/2018 01:40 Discharged to Home. Impression: Costochondritis. Condition is lp1 Stable. Forms are Medication Reconciliation Form, Thank You Letter, Antibiotic Education, Prescription Opioid Use. Follow up: Private Physician; When: Upon discharge from the Emergency Department; Reason: If symptoms return, Recheck today's complaints, Continuance of care. Problem is new. Symptoms have improved. tw4
[2018-10-20] MEDS ORDERED: IBUPROFEN 400 MG TAB ONE (01:45)
[2018-10-20 03:37] VITALS: TEMP 98.4
[2018-10-20 03:43] VITALS: BP 158/87; O2SAT 96
--- NOTE | 2018-10-20 08:00 | RAD REPORT ---
EXAM DESCRIPTION: Angeline Single View10/19/2018 9:32 pm CLINICAL HISTORY: Chest pain COMPARISON: May 2018 FINDINGS: The lungs appear clear of acute infiltrate. The heart is mildly to moderately an IMPRESSION: No acute abnormalities displayed
--- NOTE | 2018-10-20 09:11 | RAD REPORT ---
EXAM DESCRIPTION: CT - Chest For Pe Angio - 10/20/2018 3:30 am CLINICAL HISTORY: Shortness of breath. TECHNIQUE: Chest CTA. 3.0 mm reconstructed axial images were obtained. Coronal and sagittal reformat richard images were obtained. Coronal and sagittal MIP images were obtained. DOSE OPTIMIZATION: This facility uses dose optimization techniques as appropriate to perform exams, including at least one of the following techniques: 1. Automated exposure control. 2. Adjustment of the mA and/or kV according to patient size (this includes techniques or standardized protocols for targeted exams where dose is matched to the indication/reason for exam, i.e. extremiti es or head). 3. Use of iterative reconstructive technique. INTRAVENOUS CONTRAST: Not documented. Please refer to medical record COMPARISON: None. FINDINGS: Lung Wiggins: Normal. Mediastinal Structures: No aortic dissection. No pericardial effusion. No adenopathy. Pulmonary Arteries: Normal. Pleural Space: Normal. Axillae: No adenopathy. Upper Abdomen: Normal. Bony Structures: No suspicious lesions. IMPRESSION: 1. No evidence of pulmonary embolus. 2. No active infiltrates. Electronically signed by: Matthew Briceño MD 10/19/2018 11:03 PM CDT Due to temporary technical issues with the PACS/Fluency reporting system, reports are being signed by the in house radiologist as a courtesy to ensure prompt reporting. The interpreting radiologist is f ully responsible for the content of the report.
--- NOTE | 2018-10-20 11:47 | EKG ---
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
== END 2018-10-20 02:05 | disposition home or self-care (01) ==
LOC: ER 20:31
DX: M94.0 Chondrocostal junction syndrome [Tietze] (principal); I10 Essential (primary) hypertension; E11.9 Type 2 diabetes mellitus without complications; Z72.0 Tobacco use
CPT/HCPCS: 36415; 71045; 71275; 80048; 80076; 83735; 83880; 84484; 85025; 85379; 85610; 93005; 96374; 99285; Q9967